=== PATIENT | female | born 1990 | race Caucasian/White ===

== ENCOUNTER 2017-05-27 14:35 | Emergency (ER) | payer OTHER ==
[~2017-05-27] VITALS: Ht 170.2 cm; Wt 86.2 kg
--- OUTSIDE RECORDS SUMMARY | ~2017-05-27 | XMS | Clinical Summary ---
Demographics + + + | Address | [address] | | | [place] [address] | + + + | Home Phone | | + + + | Preferred Language | Unknown | + + + | Marital Status | Significant Other | + + + | Jehovah'S Witness Affiliation | None | + + + | Race | White | + + + | Ethnic Group | Not or | + + + Author + + + | Author | [facility] | + + + | Organization | [facility] | + + + | Address | Unknown | + + + | Phone | Unavailable | + + + Support + + + + + | Name | Relationship | Address | Phone | + + + + + | , DINORA SINGLETON | ECON | [place] | | + + + + + | SANTIAGO TYLER | ECON | [place] | | + + + + + Care Team Providers + +------+ + | Care Social Work Administrator Name | Role | Phone | + +------+ + | None Per Patient, None Per | PP | Unavailable | | Pt | | | + +------+ + Allergies + + + + + + | Active Allergy | Reactions | Severity | Noted | Comments | | | | | Date | | + + + + + + | Cephalexin | Rash | Low | 04/29/20 | | | | | | 13 | | + + + + + + Current Medications + + +--------+---------+------+------+-------+ | Prescription | Sig. | Disp. | Refills | Star | End | Statu | | | | | | t | Date | s | | | | | | Date | | | + + +--------+---------+------+------+-------+ | | Take by mouth. | | | | | Activ | | MULTIVITAMIN/IRON/FO | | | | | | e | | LIC ACID (CENTRUM | | | | | | | | COMPLETE ORAL) | | | | | | | + + +--------+---------+------+------+-------+ | | Take 1-2 tablets by | 20 | 0 | 04/2 | | Activ | | HYDROcodone-acetamin | mouth Every 4 Hours | tablet | | 4/20 | | e | | ophen (NORCO) 5-325 | As Needed for Pain | | | 14 | | | | mg per tablet | | | | | | | + + +--------+---------+------+------+-------+ Active Problems No known active problems Social History + +-------+ +--------+------+ | Tobacco Use | Types | Packs/Day | Years | Date | | | | | Used | | + +-------+ +--------+------+ | Never Smoker | | | | | + +-------+ +--------+------+ + +---+---+---+ | Smokeless Tobacco: | | | | | Never Used | | | | + +---+---+---+ + + +---------+ + | Alcohol Use | Drinks/We | oz/Week | Comments | | | ek | | | + + +---------+ + | No | | | | + + +---------+ + + + + | Sex Assigned at | Date Recorded | | | | + + + | Not on file | | + + + Last Filed Vital Signs + + + + | Vital Sign | Reading | Time Taken | + + + + | Blood Pressure | 103/59 | 11/10/2013 5:26 PM PDT | + + + + | Pulse | 59 | 11/10/2013 5:26 PM PDT | + + + + | Temperature | 36.3 C (97.3 F) | 11/10/2013 4:48 PM PDT | + + + + | Respiratory Rate | 12 | 11/10/2013 5:26 PM PDT | + + + + | Oxygen Saturation | 96% | 11/10/2013 5:26 PM PDT | + + + + | Inhaled Oxygen | - | - | | Concentration | | | + + + + | Weight | 82.5 kg (181 lb 14.1 | 11/10/2013 12:49 PM PDT | | | oz) | | + + + + | Height | 170.2 cm (5' 7.01") | 11/10/2013 12:49 PM PDT | + + + + | Body Mass Index | 28.48 | 11/10/2013 12:49 PM PDT | + + + + Plan of Treatment + + + + + | Health Maintenance | Due Date | Last Done | Comments | + + + + + | HIV Screening | | | | | | 4 | | | + + + + + | Tetanus | | | | | | 8 | | | + + + + + | Cervical Cancer | | | | | Screening | 0 | | | + + + + + | IMM Influenza (#1) | | | | | | 7 | | | + + + + + Implants + +--------+--------+ +--------+--------+--------+ | Implanted | Type | Area | Manufacture | Device | Expira | Model | | | | | r | | tion | / | | | | | | Identi | Date | Serial | | | | | | fier | | / Lot | + +--------+--------+ +--------+--------+--------+ | Imp Ear Freeman Partial W/Sizers | Surgic | Right: | DEBBIE | | 01/16/ | [id number] | | Debbie *[id number] - | al IMP | Ear | [employer] | | 2017 | | | [id number]: Qty: 1 on | ENT | | | | | 12 62 | | 05/05/2013 by Joseph, | (47 | | | | | 52 | | Alonzo Guerrero MD | 459) | | | | | | + +--------+--------+ +--------+--------+--------+ Results Not on filefrom Last 3 Months Insurance + +--------+ +------+ + + | Payer | Benefi | Subscriber | Type | Phone | Address | | | t Plan | ID | | | | | | / | | | | | | | Group | | | | | + +--------+ +------+ + + | [employer] | BLUE | [id number] | PPO | [phone] | [address] [address] [place] | | | [place]OSS | [phone] | [phone] | [place], [place] | | | [place] | | | | [phone] | | | PPP/PP | | | | | | | O | | | | | | | NETWOR | | | | | | | K | | | | | + +--------+ +------+ + + + +--------+ +--------+ + + | Guarantor Name | Accoun | Relation to | Date | Phone | Billing Address | | | t Type | Patient | of | | | | | | | | | | + +--------+ +--------+ + + | IZZY SINGLETON | Person | Self [birth year] Home: | [address] | | | al/Fam | | 1990 | [phone] [place] [address] | | | chelly | | | [phone] | | + +--------+ +--------+ + + Advance Directives Patient has advance directives. For more information, please contact:[facility] [place] [address]
[~2017-05-27 14:35] MED LIST: AUGMENTIN 875-1 EACH PO; PRENATABS RX T1 EACH PO
[2017-05-27] MEDS ORDERED: IBUPROFEN600 MG PO (14:56)
== END 2017-05-27 15:31 | disposition home or self-care (01) ==
LOC: ED 14:35
DX: S93.601A Unspecified sprain of right foot, initial encounter (principal); X58.XXXA Exposure to other specified factors, initial encounter
CPT/HCPCS: 73630; 99283